=== PATIENT | male | born 1985 | race Caucasian/White ===

== ENCOUNTER 2018-05-22 19:21 | Emergency (ER) | payer SELFPAY ==
[~2018-05-22] VITALS: Ht 175.3 cm; Wt 91.2 kg
[2018-05-22 19:30] VITALS: BP 142/75; PULSE 107; RESP 18; Ht 175.3 cm; Wt 91.2 kg
--- NOTE | 2018-05-22 20:24 | ERD ---
ER Documentation Chief Complaint Chief Complaint "shaking" in abdominal region. no n/v/d/pain HPI 33-year-old male patient with no significant past medical history is a methamphetamine user, presents to the ED stating that he feels abdominal shaking for the past 3 months. Patient reports that he uses methamphetamine, once a week. Denies any fever, chills, nausea, vomiting, diarrhea, neck stiffness. Denies any abdominal trauma. States that last views at that morning was yesterday. States that he also feels that the bed is shaking as well as his apartment. Denies any hallucinations. Denies any suicidal or homicidal ideations. ROS All systems reviewed and are negative except as per history of present illness. PMhx/Soc Medical and Surgical Hx: pt denies Medical Hx, pt denies Surgical Hx Hx Alcohol Use: No Hx Substance Use: Yes (crystal meth last used 05/21/18) Hx Tobacco Use: Yes (3cig/day) Smoking Status: Current every day smoker FmHx Family History: No diabetes, No coronary disease Physical Exam Vitals Vital Signs Date Temp Pulse Resp B/P (MAP) Pulse Ox O2 O2 Flow FiO2 Time Delivery Rate 05/22/18 97.7 107 18 142/75 99 19:30 (97) Physical Exam Const: Too-vwq-hepizigfv, well-nourished. In no acute distress. Head: Atraumatic, normocephalic Eyes: Normal Conjunctiva without injection. No purulent discharge. ENT: Normal external ear, nose. Moist oropharynx without tonsillar exudates. Non-erythematous pharynx. Uvula midline. No drooling. No trismus. Neck: No cervical midline tenderness. Full range of motion. No meningismus. No cervical lymphadenopathy. No JVD. Resp: Clear to auscultation bilaterally. No wheezing, rhonchi, rales, or crackles. No accessory muscle use. No retractions. Cardio: Regular rate and rhythm. No murmurs, rubs or gallops. Abd: Soft, nontender, non distended. Normal bowel sounds. No palpable masses. No rebound tenderness. No guarding. Negative McBurney's point. Negative psoas sign. Negative obturator sign. Skin: No petechiae or rashes Back: No midline tenderness. No CVA tenderness. Ext: No cyanosis, or edema. Neur: Awake and alert. Normal gait. Normal coordination. Psych: Normal Mood and Affect Procedures/MDM 33-year-old male patient with no significant past medical history presents to the ED he feels abdominal shaking. Patient is afebrile and nontoxic-appearing. The discussion of patient using methamphetamine was done at this time. Instructed patient to avoid using methamphetamine. Patient has no tenderness palpation of the abdomen. Patient's abdomen is not shaking. Peristalsis noted.Low suspicion for drug withdrawal, testicular torsion, gastritis, GERD, peptic ulcer disease, cholecystitis, choledocholithiasis, cholangitis, pancreatitis, appendicitis, bowel obstruction, ileus, volvulus, nephrolithiasis, pyelonephritis, hepatitis, perforated viscus, diverticulitis, abdominal hernia, acute abdomen, mesenteric ischemia or other emergent conditions. Diagnosis: Shaking chills Follow up with primary care physician in 1-2 days. Instructed patient to return to the ED sooner for any worsening symptoms. Patient's questions were answered. Patient is hemodynamically stable. Patient understood and agreed with discharge plan. Patient discharged stable. Disclaimer: Inadvertent spelling and grammatical errors are likely due to EHR/dictation software use and do not reflect on the overall quality of patient care. Also, please note that the electronic time recorded on this note does not necessarily reflect the actual time of the patient encounter. Departure Diagnosis: Primary Impression: Shaking chills Condition: Stable Patient Instructions: Understanding Methamphetamine Abuse and Addiction Referrals: [facility] YOU HAVE RECEIVED A MEDICAL SCREENING EXAM AND THE RESULTS INDICATE THAT YOU DO NOT HAVE A CONDITION THAT REQUIRES URGENT TREATMENT IN THE EMERGENCY DEPARTMENT. FURTHER EVALUATION AND TREATMENT OF YOUR CONDITION CAN WAIT UNTIL YOU ARE SEEN IN YOUR DOCTORS OFFICE WITHIN THE NEXT 1-2 DAYS. IT IS YOUR RESPONSIBILITY TO MAKE AN APPOINTMENT FOR FOLOW-UP CARE. IF YOU HAVE A PRIMARY DOCTOR --you should call your primary doctor and schedule an appointment IF YOU DO NOT HAVE A PRIMARY DOCTOR YOU CAN CALL OUR PHYSICIAN REFERRAL HOTLINE AT IF YOU CAN NOT AFFORD TO SEE A PHYSICIAN YOU CAN CHOSE FROM THE FOLLOWING [facility] [address] [facility] [address] [facility] [facility] [address] [facility] [address] [facility]. [facility] [address] [facility]. [facility] [address] [facility]. [facility] YOU HAVE RECEIVED A MEDICAL SCREENING EXAM AND THE RESULTS INDICATE THAT YOU DO NOT HAVE A CONDITION THAT REQUIRES URGENT TREATMENT IN THE EMERGENCY DEPARTMENT. FURTHER EVALUATION AND TREATMENT OF YOUR CONDITION CAN WAIT UNTIL YOU ARE SEEN IN YOUR DOCTORS OFFICE WITHIN THE NEXT 1-2 DAYS. IT IS YOUR RESPONSIBILITY TO MAKE AN APPOINTMENT FOR FOLOW-UP CARE. IF YOU HAVE A PRIMARY DOCTOR --you should call your primary doctor and schedule and appointment IF YOU DO NOT HAVE A PRIMARY DOCTOR YOU CAN CALL OUR PHYSICIAN REFERRAL HOTLINE AT . IF YOU CAN NOT AFFORD TO SEE A PHYSICIAN YOU CAN CHOSE FROM THE FOLLOWING [facility] INSTITUTIONS: [facility] [address] [place] [address] [facility] [address] [place], [place] [id number] [place] [address] [address] [place] [address] [facility] URGENT CARE/SPECIALTIES Additional Instructions: Call your primary care doctor TOMORROW for an appointment during the next 2-3 days for referral to rehab. See the doctor sooner or return here if your con dition worsens before your appointment time. ABILIO TIJERINA PA-C May 22, 2018 20:23
== END 2018-05-22 20:18 | disposition home or self-care (01) ==
LOC: FTE 19:21
DX: R25.1 Tremor, unspecified (principal); F17.210 Nicotine dependence, cigarettes, uncomplicated
CPT/HCPCS: 99282

== ENCOUNTER 2018-12-03 14:29 | Emergency (ER) | payer SELFPAY ==
[~2018-12-03] VITALS: Ht 175.3 cm; Wt 93.4 kg
[2018-12-03 14:34] VITALS: BP 122/83; PULSE 89; RESP 17; Ht 175.3 cm; Wt 93.4 kg
[2018-12-03] MEDS ORDERED: NPH10OT RIGHT EAR (15:55)
--- NOTE | 2018-12-03 15:55 | ERD ---
ER Documentation Chief Complaint Chief Complaint PAIN ON RIGHT EARLOBE X1 MONTH HPI 33-year-old male, previously healthy, presents to the emergency department, complaining of 1 month with right earlobe pain, dull, constant, 4/10. No headache, no fever, no ear discharge. The patient denies rashes, no neck pain. ROS All systems reviewed and are negative except as per history of present illness. Medications Home Meds Active Scripts Neomycin/Polymyxin/Hydrocort* (Cortisporin* Otic) 10 Ml Susp, 4 DROP RIGHT EAR TID for 7 Days, EA Prov:FELIX LUNA MD 12/03/18 PMhx/Soc Hx Alcohol Use: No Hx Substance Use: Yes (crystal meth last used 05/21/18) Hx Tobacco Use: Yes (3cig/day) Physical Exam Vitals Vital Signs Date Temp Pulse Resp B/P (MAP) Pulse Ox O2 O2 Flow FiO2 Time Delivery Rate 12/03/18 97.5 89 17 122/83 98 14:34 (96) Physical Exam Patient alert, oriented, vital signs stable. HEAD: Normocephalic, atraumatic. EYES: PERRLA, EOMI, Sclera and conjunctiva appear normal. NOSE: Clear and patent nostrils. EARS: Right ear with mild edema and erythema of the canal, tympanic membrane normal, contralateral ear normal. MOUTH: normal lips and tongue, no oral lesions. THROAT: Normal oropharynx, no tonsillar exudates. NECK: Supple, No lymphadenopathy. Full ROM without pain or tenderness. HEART: RRR, no rubs, murmurs, clicks or gallops. LUNGS: Clear to auscultation. ABDOMEN: Soft, non-tender without masses or hepatosplenomegaly. EXTREMITIES: No edema bilaterally. BACK: Full ROM, no deformity, normal back exam NEURO: Cranial nerves grossly intact, no motor or sensory deficit SKIN: No rashes, no petechia. Procedures/MDM Vital signs stable, differential diagnosis include but not limited to: infection bacterial/viral/fungal. Tonsillitis, eustachian dysfunction, allergies, foreign body, cholesteatoma. Less likely mastoiditis, malignant otitis, meningitis. Physical examination and clinical presentation consistent most likely with right otitis externa. During the ED course the patient remained stable, no new complaints. Clinical impression discussed with with the patient who agrees with management. The patient is stable to be treated outpatient and will be discharged home with a Rx for antibiotics and ibuprofen. Some side effects of prescribed medications (headache, rash, nausea, vomiting, diarrhea, interactions with other medications) were reviewed. The patient was instructed to follow up with the primary care provider in the next 48h. If symptoms persist, worsen or new symptoms develop, then patient should return to the ED immediately. Disclaimer: Inadvertent spelling and grammatical errors are likely due to myaNUMBER/dictation software use and do not reflect on the overall quality of patient care. Also, please note that the electronic time recorded on this note does not necessarily reflect the actual time of the patient encounter. Departure Diagnosis: Primary Impression: Right ear pain Condition: Stable Additional Instructions: Thank you very much for allowing us to participate in your care. Your health and safety is our top priority at [facility]. The evaluation in the emergency department has been done to rule out an acute emergency. Chronic, [id number] conditions may have not been evaluated; therefore, you need to follow up with a primary care provider in the next 48h. If symptoms persist, worsen or new symptoms develop, then patient should return to the ED immediately. Call your primary care doctor TOMORROW for an appointment during the next 2-4 days and bring all the information provided. Have prescriptions filled and follow precisely the directions on the label. If the symptoms get worse and your provider is unavailable, return to the Emergency Department immediately. FELIX LUNA MD Dec 03, 2018 15:55
== END 2018-12-03 15:55 | disposition home or self-care (01) ==
LOC: FTE 14:29 → E/R 15:55
DX: H92.01 Otalgia, right ear (principal); Z87.891 Personal history of nicotine dependence
CPT/HCPCS: 99282

== ENCOUNTER 2019-01-08 20:18 | Emergency (ER) | payer SELFPAY ==
[~2019-01-08] VITALS: Ht 175.3 cm; Wt 90.7 kg
[~2019-01-08 20:18] MED LIST: ARIP10TA12 PO; NPH10OT RIGHT EAR
[2019-01-08 20:20] VITALS: BP 123/89; PULSE 75; Ht 175.3 cm; Wt 90.7 kg
== END 2019-01-08 23:47 | disposition left against medical advice (07) ==
LOC: E/R 20:18
DX: Z53.21 Procedure and treatment not carried out due to patient leaving prior to being seen by health care provider (principal)

== ENCOUNTER 2019-01-10 20:13 | Emergency (ER) | payer SELFPAY ==
[~2019-01-10] VITALS: Ht 175.3 cm; Wt 89.2 kg
[2019-01-10 20:15] VITALS: Ht 175.3 cm; Wt 89.2 kg
[2019-01-10] MEDS ORDERED: ARIPIPRAZOLE 5 MG TAB PO STA (22:03)
[2019-01-10 22:14] VITALS: BP 140/80; PULSE 88; RESP 18
== END 2019-01-10 22:15 | disposition home or self-care (01) ==
LOC: E/R 20:13
DX: R44.0 Auditory hallucinations (principal); F17.210 Nicotine dependence, cigarettes, uncomplicated
CPT/HCPCS: 70450

== ENCOUNTER 2019-01-27 05:14 | Emergency (ER) | payer MEDICAID ==
[~2019-01-27] VITALS: Ht 175.3 cm; Wt 86.4 kg
[2019-01-27 05:23] VITALS: Ht 175.3 cm; Wt 86.4 kg
[2019-01-27] MEDS ORDERED: HALOPERIDOL 5 MG TAB PO ONE (08:00)
[2019-01-27 09:21] VITALS: BP 129/96; PULSE 80; RESP 22
[2019-01-27] MEDS ORDERED: LORAZEPAM 1 MG TAB PO ONE (10:00)
== END 2019-01-27 12:40 ==
LOC: E/R 05:14
DX: R44.0 Auditory hallucinations (principal); F17.210 Nicotine dependence, cigarettes, uncomplicated; R07.9 Chest pain, unspecified
CPT/HCPCS: 80053; 80307; 81003; 84484; 85025; 93005; Z7502; Z7610